=== PATIENT | male | born 1975 | race African-American/Black ===

== ENCOUNTER 2022-02-10 13:07 | Inpatient (IN) | payer SELFPAY ==
[~2022-02-10] VITALS: Ht 190.5 cm; Wt 90.7 kg
[2022-02-10] MEDS ORDERED: LIDOCAINE HCL 1% 20ML VIAL (Pyxis) INJ INFIL STA (17:09)
[2022-02-10] MEDS ORDERED: VANCOMYCIN 1G PREMIX 200 ML IV SCH (17:15)
[2022-02-10] MEDS ORDERED: CEFTRIAXONE 1 G PREMIX 50 ML IV ONE (17:15)
[2022-02-10] MEDS ORDERED: LIDOCAINE HCL 1% 10 MG/ML 10ML VIAL INJ NR (17:55)
[2022-02-10 18:23] LABS: BASOPHILS % 0.6 % (0.0-2.0); EOSINOPHILS % 0.1 % (0.0-5.0); HEMATOCRIT. 37.7 % (42.0-52.0); HEMOGLOBIN. 12.5 g/dL (14.0-18.0); LYMPHOCYTES % 17.7 % (20.0-50.0); MEAN CORPUSCULAR HEMOGLOBIN 24.4 pg (28.0-32.0); MEAN CORPUSCULAR VOLUME 73.6 fL (80.0-94.0); MEAN PLATELET VOLUME 8.1 fl (7.4-10.4); MONOCYTES % 10.4 % (2.0-8.0); NEUTROPHILS % 71.2 % (40.0-76.0); PLATELET 242 x1000/uL (130-400); RED BLOOD CELL COUNT 5.12 mill/uL (4.7-6.1); RED CELL DISTRIBUTION WIDTH 16.6 % (11.6-14.6)
[2022-02-10 18:32] LABS: CHLORIDE 97 mEq/L (98-107)
[2022-02-10 23:00] VITALS: BP 129/80
[2022-02-11] MEDS ORDERED: ACETAMINOPHEN 325MG TABLET PO PRN (07:00)
[2022-02-11] MEDS ORDERED: MORPHINE SULFATE 2 MG/ML CPJ (NOT FOR IM USE) IV PRN (07:00)
[2022-02-11] MEDS ORDERED: SODIUM CHLORIDE 0.9% 1,000 ML IV SCH (07:00)
[2022-02-11] MEDS ORDERED: KETOROLAC 30MG/ML VIAL IV SCH (07:00)
[2022-02-11] MEDS ORDERED: ONDANSETRON HCL 4MG/2ML INJ IV PRN (07:00)
[2022-02-11 08:00] VITALS: BP 114/77
[2022-02-11] MEDS ORDERED: VANCOMYCIN 1500MG in DEXTROSE 5% WATER 250ML IV SCH (09:00)
[2022-02-11] MEDS ORDERED: IBUP-2030 MT (09:31)
[2022-02-11] MEDS ORDERED: HYDR-4009 MT (09:31)
[2022-02-11] MEDS ORDERED: P20 MT (09:31)
[2022-02-11] MEDS ORDERED: COLC0.6C3 MT (09:31)
[2022-02-11 10:25] VITALS: BP 114/77
[2022-02-11] MEDS ORDERED: CEFTRIAXONE 1,000 MG in DEXTROSE 5% WATER 50 ML IV SCH (18:00)
== END 2022-02-11 11:15 | disposition home or self-care (01) | DRG 351 ==
LOC: ER 14:38 → MICUSO 18:35 → EDBEDREQTM 18:39 → EDBEDREQ 18:39 → 6EST 02-11 00:54
PROVIDERS: ADMIT Internal Medicine; ATTEND Internal Medicine
PROC: 0S9D3ZZ Drainage of Left Knee Joint, Percutaneous Approach (ICD-10-PCS; principal; 2022-02-10)
DX: M17.12 Unilateral primary osteoarthritis, left knee (principal); M25.462 Effusion, left knee
CPT/HCPCS: 36415; 73562; 80053; 83605; 84145; 84550; 85025; 85651; 89060; 99291; J0696; J1885; J3370; J3490; J7030; J7060

== ENCOUNTER 2022-02-19 10:40 | Emergency (ER) | payer SELFPAY ==
[~2022-02-19] VITALS: Ht 177.8 cm; Wt 89.0 kg
[~2022-02-19 10:40] MED LIST: COLC0.6C3 MT; HYDR-4009 MT; IBUP-2030 MT; P20 MT
[2022-02-19 10:53] VITALS: BP 167/107
[2022-02-19] MEDS ORDERED: IBUP-2030 PO ×3 (12:09→12:10)
== END 2022-02-19 12:23 | disposition home or self-care (01) ==
LOC: ER 10:40
DX: M25.562 Pain in left knee (principal); Z87.828 Personal history of other (healed) physical injury and trauma
CPT/HCPCS: 99282